=== PATIENT | male | born 1990 | race Two or more races ===

== ENCOUNTER 2019-01-26 22:32 | Emergency (ER) | payer SELFPAY ==
--- NOTE | 2019-01-26 23:05 | RADIOLOGY REPORT (SQ) ---
EXAM DESCRIPTION: XR ELBOW 3 VIEWS COMPLETED DATE/TME: 01/26/2019 22:38 CLINICAL HISTORY: 28 years, Male, fall injury COMPARISON: None. NUMBER OF VIEWS: 4 TECHNIQUE: 4 view left elbow LIMITATIONS: None. FINDINGS: Negative for fracture or dislocation. Mild superficial soft tissue swelling medially. No evidence for joint effusion or abnormal fat pad IMPRESSION: No acute osseous abnormality copyright 2010 [employer]- All Rights Reserved
--- NOTE | 2019-01-26 23:14 | RADIOLOGY REPORT (SQ) ---
EXAM DESCRIPTION: XR SHOULDER 2 OR MORE VIEWS COMPLETED DATE/TME: 01/26/2019 00:00 CLINICAL HISTORY: 28 years, Male, fall injury; deformity COMPARISON: None. NUMBER OF VIEWS: 3 TECHNIQUE: 3 view left shoulder LIMITATIONS: None. FINDINGS: Negative for fracture or dislocation. Soft tissues are unremarkable IMPRESSION: Negative exam copyright 2011 [employer]- All Rights Reserved
--- NOTE | 2019-01-27 00:02 | ER Document Report ---
Addendum entered and electronically signed by CHUY TEAGUE PA-C 01/27/19 00:41: Discharge - Discharge Clinical Impression: Internal derangement of elbow Abrasion of back Qualifiers: Encounter type: initial encounter Laterality: right Qualified Code(s): S20.411A - Abrasion of right back wall of thorax, initial encounter Condition: Good Disposition: HOME, SELF-CARE Instructions: Oral Narcotic Medication ([facility]), Sling as Treatment ([facility]) Additional Instructions: Please see an orthopedic doctor either tomorrow or Monday. If you are unable to get an orthopedic appointment in [place], please follow-up with 1 of the emergency departments there to see if he can get a referral to an orthopedist. Prescriptions: Oxycodone HCl/Acetaminophen [Percocet 5-325 mg Tablet] 1 - 2 tab PO Q4H PRN #15 tablet PRN Reason: Referrals: IN [place], OR[facility]ED[facility] [Other] - Follow up as needed Print Language: [place] Addendum entered and electronically signed by CHYU TEAGUE PA-C 01/27/19 00:40: Physical Exam - Vital signs Vitals: Temp Pulse Resp BP Pulse Ox 98.5 F 71 19 141/88 H 94 01/26/19 22:59 01/26/19 22:59 01/26/19 22:59 01/26/19 22:59 01/26/19 22:59 - Notes Notes: Significant abrasions some that are slightly bleeding to the right upper back Original Note: ED General - General Chief Complaint: Shoulder Injury Stated Complaint: SHOULDER INJURY Time Seen by Provider: 01/26/19 23:46 Mode of Arrival: Ambulatory Information source: Patient TRAVEL OUTSIDE OF THE [place] IN LAST 30 DAYS: No - HPI Patient complains to provider of: Left elbow injury Onset: Just prior to arrival Onset/Duration: Sudden Quality of pain: Sharp Severity: Severe Pain Level: 5 Associated symptoms: None Exacerbated by: Movement Relieved by: Denies Similar symptoms previously: No Recently seen / treated by doctor: No Notes: Left elbow injury - Related Data Allergies/Adverse Reactions: No Known Allergies Allergy (Unverified 01/26/19 23:10) Past Medical History - General Information source: Patient - Social History Smoking Status: Never Smoker Frequency of alcohol use: Occasional Drug Abuse: None Family History: Reviewed & Not Pertinent Patient has suicidal ideation: No Patient has homicidal ideation: No Renal/ Medical History: Denies: Hx Peritoneal Dialysis Review of Systems - Review of Systems Notes: Constitutional: No fevers. No chills. EENT: No eye redness. No eye pain. No ear pain. No sore throat. Cardiovascular: No chest pain. No palpitations. Respiratory: No cough. No shortness of breath. No respiratory distress. Gastrointestinal: No abdominal pain. No nausea, vomiting, or diarrhea. Genitourinary: Atraumatic. No lesions. No pain. No discharge. Musculoskeletal: Pain and swelling left elbow Skin: No rash or lesions. Lymphatic: No swollen lymph nodes. Neurologic: No headache. No syncope. Psychiatric: No suicidal or homicidal ideation. Physical Exam - Vital signs Vitals: Temp Pulse Resp BP Pulse Ox 98.5 F 71 19 141/88 H 94 01/26/19 22:59 01/26/19 22:59 01/26/19 22:59 01/26/19 22:59 01/26/19 22:59 - Notes Notes: General: Well-developed, well-nourished. In no acute distress. Non-toxic appearing. Cardiac: Well-perfused. Regular rate and rhythm. No murmurs, rubs, or gallops. Pulmonary: No respiratory distress. No cyanosis. Bilateral lung fiels are clear to auscultation. Abdominal: Non-distended. Non-rigid. Bowels sounds are present in all four quadrants. No guarding or rebound. HEENT: Head is atraumatic. Conjunctivae not reddened. No tearing. PERRL. EOMI. Orbits atraumatic. No periorbital swelling or erythema. Oropharynx is without erythema, swelling, or exudates. Neck: Supple. No adenopathy. No meningismus. Dermatologic: Warm with good turgor. No rash. Atraumatic. Chest: Atraumatic. No chest wall tenderness to palpation. Musculoskeletal: Left upper extremity is evaluated. There is no apparent tenderness or range of motion deficit in the left shoulder. The left humerus is examined and normal proximally. Distal medial humerus is tender and deformed appearing. Patient has good flexion and extension with obvious discomfort. He has good pronation and supination with obvious discomfort. He is able to all of his digits. He is able to feel in all of his digits. His cap refill is less than 2 seconds. Genitourinary: Examination deferred Neurologic: No gross neurologic deficits. Psychiatric: Normal mood. Course - Re-evaluation Re-evalutation: 01/27/19 00:08 X-rays of the left shoulder and left elbow are negative. Patient does have an obvious swollen almost deformed appearance of the medial aspect of the distal humerus. Suspect this is a torn muscle. Discussed this with Dr. MIRANDA who agrees. Patient does have full pronation and supination with some discomfort. Good distal neurovascular exam. Patient does not live in the area. He lives in [place]. I suggested that he see an orthopedic doctor in [place] on Monday or if he is unable to get a prompt orthopedic appointment to follow-up in 1 of the emergency department IN that town. - Vital Signs Vital signs: Temp Pulse Resp BP Pulse Ox 98.5 F 70 19 141/88 H 94 01/26/19 22:59 01/26/19 23:00 01/26/19 22:59 01/26/19 22:59 01/26/19 22:59 Discharge - Discharge Clinical Impression: Internal derangement of elbow Condition: Good Disposition: HOME, SELF-CARE Instructions: Oral Narcotic Medication ([facility]), Sling as Treatment ([facility]) Additional Instructions: Please see an orthopedic doctor either tomorrow or Monday. If you are unable to get an orthopedic appointment in [place], please follow-up with 1 of the emerg ency departments there to see if he can get a referral to an orthopedist. Prescriptions: Oxycodone HCl/Acetaminophen [Percocet 5-325 mg Tablet] 1 - 2 tab PO Q4H PRN #15 tablet PRN Reason: Referrals: IN [place], [facility] [Other] - Follow up as needed Print Language: Australian
[2019-01-27] MEDS ORDERED: HYDROCODONE/ACETAMINOPHEN 5-325 MG TABLET PO ONE (00:05)
[2019-01-27] MEDS ORDERED: IBUPROFEN 800 MG TABLET PO ONE (00:05)
[2019-01-27] MEDS ORDERED: HYDROCODONE/ACETAMINOPHEN 5-325 MG (6 TAB/ER DISP) PO PRN (00:06)
[2019-01-27 00:26] VITALS: BP 119/68
== END 2019-01-27 00:26 | disposition home or self-care (01) ==
LOC: ER 22:32
DX: S53.10 Unspecified subluxation and dislocation of ulnohumeral joint (principal); S20.411A Abrasion of right back wall of thorax, initial encounter; M25.522 Pain in left elbow; W17.89XA Other fall from one level to another, initial encounter
CPT/HCPCS: 99283